=== PATIENT | female | born 1965 | race Caucasian/White ===

== ENCOUNTER → 2018-01-25 | Outpatient (CLI) | payer BC, MEDICARE ==
--- NOTE | 2018-01-25 14:48 | Diagnostic Imaging Report ---
TECHNIQUE: Magnetic resonance imaging of the LEFT HAND was performed WITHOUT injected contrast. A skin marker overlies the dorsal aspect of the hand at the level of the third and fourth metacarpophalangeal joints. HISTORY: Mass, swelling, left third/fourth intermetacarpal COMPARISON: None available FINDINGS: BONES: No focal or infiltrative bone marrow replacing abnormalities identified. No acute fracture or osteonecrosis. JOINTS: No dislocation or joint effusion. SOFT TISSUES: Enhancement characteristics cannot be assessed. No discrete soft tissue mass underlying the region of the skin marker. Trace fluid adjacent to the flexor tendons of the ring finger at the level of the distal fourth metacarpal metaphysis. IMPRESSION: 1. No discrete soft tissue mass. In the setting of a palpable mass or growing mass, a follow-up MRI of the hand with and without contrast would provide a more sensitive evaluation for a subtle soft tissue mass. 2. Minimal ring finger flexor tenosynovitis. Signed by: Dr. Christofer Combs D.O., M.M.M. on 01/25/2018 2:44 PM
== END ==
LOC: MRI 13:39
PROVIDERS: ATTEND Plastic Surgery
DX: M79.642 Pain in left hand (principal); R22.32 Localized swelling, mass and lump, left upper limb

== ENCOUNTER 2024-05-18 10:40 | Outpatient (RCR) | payer MEDICARE | END 2024-05-20 | LOC: PT 10:40 | PROVIDERS: ATTEND Internal Medicine | DX: M25.512 Pain in left shoulder (principal) ==

== ENCOUNTER 2024-06-06 10:00 | Outpatient (RCR) | payer MEDICARE | END 2024-06-19 | LOC: PT 10:00 | PROVIDERS: ATTEND Internal Medicine | DX: M25.512 Pain in left shoulder (principal) ==

== ENCOUNTER 2024-06-29 10:00 | Outpatient (RCR) | payer MEDICARE | END 2024-07-20 | LOC: PT 10:00 | PROVIDERS: ATTEND Internal Medicine | DX: M25.512 Pain in left shoulder (principal) ==